=== PATIENT | female | born 1955 | race Caucasian/White ===

== ENCOUNTER → 2018-12-26 08:10 | Outpatient (CLI) | payer BC, SELFPAY ==
--- NOTE | 2018-12-26 08:13 | XR_ITS ---
XR DEXA axial skeleton HISTORY: ITS.REASON: screening ORDERING PHYSICIAN: Aris Cruz MD PATIENT AGE: 63 years COMPARISON: 09/05/2015 FINDINGS: The lumbar spine, L1-L4 levels shows a T score of -2.3. The BMD measured at the left femoral neck is 0.678 g/cm squared with a T score of -2.6. This is considered osteoporosis according to the World Health Organization criteria. Fracture risk is Moderate. Treatment is advised. IMPRESSION: Osteoporosis is now present. This has shown mild progression since prior study.
== END ==
PROVIDERS: PCP Family Medicine; Visit Provider Obstetrics & Gynecology
DX: Z78.0 Asymptomatic menopausal state (principal)
CPT/HCPCS: 77080

== ENCOUNTER → 2019-07-27 11:13 | Outpatient (CLI) | payer BC, SELFPAY ==
[2019-07-27 12:52] LABS: Thyroid Stimulating Hormone 0.97 uIU/ml (0.358-3.740)
[2019-07-28 09:46] LABS: Vitamin B12 348 pg/mL (232-1245); Vitamin D 25 Hydroxy 18.4 ng/mL (30.0-100.0)
== END ==
PROVIDERS: Visit Provider Nurse Practitioner Psychiatric/Mental Health
DX: Z00.00 Encounter for general adult medical examination without abnormal findings (principal)
CPT/HCPCS: 36415; 82607; 82652; 84443

== ENCOUNTER 2024-10-18 10:51 | Outpatient (CLI) | payer MEDICARE, OTHER, SELFPAY ==
--- NOTE | 2024-10-18 10:59 | XR_ITS ---
FINAL REPORT CLINICAL HISTORY: pain x3 days pelvis taken on left hip exam FINDINGS: RIGHT HIP Two views of the right hip demonstrate no acute fracture or dislocation. The joint spaces appear normal. The visualized bony structures are well aligned. No soft tissue abnormality is seen. IMPRESSION: No acute bony abnormality. Reviewed, Interpreted and Dictated by Ryan Johnson MD Transcribed by Nasra Man Authenticated and [facility]
--- NOTE | 2024-10-18 10:59 | XR_ITS ---
FINAL REPORT CLINICAL HISTORY: pain x3 days FINDINGS: LEFT HIP: Two views of the left hip demonstrate no acute fracture or dislocation. The joint spaces appear normal. The visualized bony structures are well aligned. No soft tissue abnormality is seen. IMPRESSION: No acute bony abnormality. Reviewed, Interpreted and Dictated by Ryan Johnson MD Transcribed by Nasra Man Authenticated and [facility]
== END 2024-10-18 23:59 | disposition home or self-care (01) ==
LOC: RAD 10:54
PROVIDERS: PCP Nurse Practitioner; Visit Provider Nurse Practitioner
DX: M25.551 Pain in right hip (principal); M25.552 Pain in left hip
CPT/HCPCS: 73502